=== PATIENT | female | born 1980 | race Asian ===

== ENCOUNTER 2020-04-12 08:16 | Day surgery (SDC) | payer OTHER, SELFPAY ==
[~2020-04-12] VITALS: Ht 160 cm; Wt 59.4 kg
[2020-04-12] MEDS ORDERED: fentaNYL citrate 0.05 MG/ML VIAL ONE (10:34)
[2020-04-12] MEDS ORDERED: MIDAZOLAM 5 MG/5 ML VIAL ONE (10:34)
[2020-04-12] MEDS ORDERED: MIDAZOLAM 2 MG/2 ML VIAL IVP ONE (12:05)
== END 2020-04-12 11:30 | disposition home or self-care (01) ==
LOC: MFCC 08:16 → MDS 08:16
PROVIDERS: ATTEND Internal Medicine Gastroenterology
DX: K30 Functional dyspepsia (principal); Z79.899 Other long term (current) drug therapy; Z20.828 Contact with and (suspected) exposure to other viral communicable diseases
CPT/HCPCS: 43235; 81025; J2250; J3010; U0003